=== PATIENT | female | born 2005 | race Caucasian/White ===

== ENCOUNTER 2025-02-25 11:18 | Emergency (ER) | payer MEDICAID ==
[~2025-02-25] VITALS: Ht 172.7 cm; Wt 59.0 kg
[2025-02-25 11:25] VITALS: BP 149/84; TEMP 98
[2025-02-25] MEDS ORDERED: IBUP-1955 PO (12:42)
[2025-02-25 13:01] VITALS: O2SAT 97
== END 2025-02-25 13:01 | disposition home or self-care (01) ==
LOC: ER 11:44
DX: S09.90XA Unspecified injury of head, initial encounter (principal); Z60.2 Problems related to living alone; W22.8XXA Striking against or struck by other objects, initial encounter; Y93.89 Activity, other specified; Y92.89 Other specified places as the place of occurrence of the external cause; Y99.8 Other external cause status